=== PATIENT | male | born 1965 | race Caucasian/White ===

== ENCOUNTER 2024-05-23 08:22 | Outpatient (OUT) | payer OTHER, SELFPAY | END 2024-05-23 08:23 | disposition home or self-care (01) | LOC: PST 08:22 | PROVIDERS: Visit Provider Surgery | DX: K62.5 Hemorrhage of anus and rectum (principal) ==

== ENCOUNTER 2024-06-04 06:27 | Day surgery (SDC) | payer OTHER, SELFPAY ==
[2024-06-04 06:30] VITALS: BP 175/90; PULSE 75; TEMP 36.9; O2SAT 97; BMI 50.5
--- OUTSIDE RECORDS SUMMARY | 2024-06-04 06:30 | XMS_ITS | CCD ---
Author Organization [facility] Care Team Providers Care High Wire Artist Name Role Phone Shoaib Bustamante Primary Care Provider YECENIA GRANT Referring Unavailable SHOAIB BUSTAMANTE Primary Care Unavailable BILLIE SELF Attending Unavailable Unavailable Primary Care Provider Unavailtracy hernandez Allergies Allergy Classification Reported Allergen(s) Allergy Type Date of Onset Reaction(s) Facility (7 sources) Acetaminophen / Codeine Drug Allergy 3 Nausea And Vomiting [place] (2 sources) Codeine Drug Allergy 4 Unknown [facility] Medications Current Medications Medication Drug Class(es) Dates Sig (Normalized) Sig (Original) acetaminophen 500 mg oral tablet (8 sources) take 2 tablets by mouth every six hours as needed acetaminophen (Tylenol) 500 MG tablet Take 2 tablets by mouth every 6 (six) hours if needed Active amLODIPine 5 mg oral tablet (4 sources) Dihydropyridine Calcium Channel Rema Start: 08-14-2023 take 1 tablet by mouth once daily amLODIPine (Norvasc) 5 MG tablet Take 1 tablet by mouth Daily 08/14/2023 Active Start: 08-09-2022 take 1 tablet by cory th once daily amLODIPine (NORVASC) 5 MG tablet Take 1 tablet by mouth daily 90 tablet 3 08/09/2022 Active aspirin 81 mg delayed release oral tablet (8 sources) Platelet Aggregation Inhibitor, Nonsteroidal Anti-inflammatory Drug take 1 tablet by mouth once daily aspirin 81 MG EC tablet Take 81 mg by mouth Daily Active take 1 tablet by mouth once jessica y aspirin 81 MG tablet Take 81 mg by mouth daily 0 Active carvedilol 25 mg oral tablet (4 sources) alpha-Adrenergic Rema, beta-Adrenergic Rema Start: 03-26-2024 take 1 tablet by mouth in the morning carvedilol (Coreg) 25 MG tablet Take 25 mg by mouth in the morning and 25 mg before bedtime. 03/26/2024 Active Start: 07-26-2022 take 1 tablet by cory th twice daily carvedilol (COREG) 12.5 MG tablet Take 1 tablet by mouth 2 times daily 60 tablet 5 07/26/2022 Active 24 hr dilTIAZem hydrochloride 120 mg extended release oral capsule (4 sources) Calcium Channel Rema Start: 12-07-2018 take 1 capsule by mouth once daily CARTIA XT 120 MG extended release capsule take 1 capsule by mouth once daily 90 capsule 3 12/07/2018 Active hydroCHLOROthiazide 12.5 mg / lisinopril 20 mg oral tablet (8 sources) Thiazide Diuretic, Angiotensin Converting Enzyme Inhibitor Start: 12-07-2018 End: 11-20-2022 take 2 tablets by mouth once daily lisinopril-hydr oCHLOROthiazide (PRINZIDE;ZESTO RETIC) 20-12.5 MG per tablet Take 2 tablets by mouth daily 180 tablet 3 08/22/2022 11/20/2022 Active ibuprofen 200 mg oral tablet (8 sources) Nonsteroidal Anti-inflammatory Drug take 1 tablet by mouth every six hours as needed for pain ibuprofen 200 MG tablet Take 200 mg by mouth every 6 (six) hours if needed for moderate pain Active tamsulosin hydrochloride 0.4 mg oral capsule (1 source) alpha-Adrenergic Rema Start: 01-08-2019 take 1 capsule by mouth once daily tamsulosin (FLOMAX) 0.4 MG capsule Take 1 capsule by mouth daily Take to facilitate stone passage 30 capsule 0 01/08/2019 Active Completed/Discontinued Medications Medication Drug Class(es) Dates Sig (Normalized) Sig (Original) bisacodyl 5 mg delayed release oral tablet (2 sources) Stimulant Laxative Start: 04-08-2024 End: 04-08-2024 take 1 tablet by mouth once bisacodyl (Dulcolax) 5 MG EC tablet Indications: Blood per rectum Take 1 tablet (5 mg) by mouth 1 time for 1 dose Do not crush, chew, or split. Take as detailed on clinic hand out for colonoscopy prep 4 tablet 04/08/2024 04/08/2024 polyethylene glycol 3350 64261 mg powder for oral solution (2 sources) Osmotic Laxative Start: 04-08-2024 End: 04-08-2024 take 17 g by mouth once polyethylene glycol, PEG, 3350 (Glycolax) 17 GM/SCOOP powder Indications: Colonoscopy Take 238 g by mouth 1 (one) time for 1 dose Take as detailed from clinic hand out for colonoscopy prep 238 g 04/08/2024 04/08/2024 Problems Active Problems Problem Classification Problem Date Documented Da te Episodic/Chronic Calculus of urinary tract (1 source) Kidney stone; Translations: [Renal calculus] Episodic Cardiac dysrhythmias (10 sources) Paroxysmal supraventricular tachycardia; 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] Onset: 5 05-05-2015 Chronic Essential hypertension (7 sources) Hypertensive disorder; Translations: [Essential (primary) hypertension] Onset: 6 06-08-2015 Chronic Gastrointestinal hemorrhage (2 sources) Rectal hemorrhage; Translations: [Hemorrhage of anus and rectum] 04-08-2024 Episodic Other lower respiratory disease (1 source) Dyspnea; Translations: [Shortness of breath] Episodic Other lower respiratory disease (1 source) Shortness of breath; Translations: [Shortness of breath] Onset: Episodic Other nutritional; endocrine; and metabolic disorders (5 sources) Morbid obesity; Translations: [Morbid (severe) obesity due to excess calories] Onset: 5 09-25-2015 Chronic Residual codes; unclassified (5 sources) Obstructive sleep apnea of adult; Translations: [Obstructive sleep apnea (adult) (pediatric)] Onset: 5 05-05-2015 Chronic Residual codes; unclassified (4 sources) Tobacco user; Translations: [Tobacco abuse] Onset: 5 05-05-2015 Chronic Unclassified (4 sources) Medication side effects present; Translations: [Medication side effects present] Onset: 6 09-25-2015 Past or Other Problems Problem Classification Problem Date Documented Da te Episodic/Chronic Administrative/social admission (5 sources) Counseling procedure with explicit context; Translations: [Tobacco abuse counseling] Onset: 05-05-2015 05-05-2015 Episodic E Codes: Adverse effects of medical drugs (1 source) Medication side effects present; Translations: [Adverse effect of unspecified drugs, medicaments and biological substances, initial encounter] Onset: 09-25-2015 09-25-2015 Episodic Genitourinary symptoms and ill-defined conditions (7 sources) Myron hematuria; Translations: [Gross hematuria] Onset: 08-13-2014 08-13-2014 Episodic Residual codes; unclassified (1 source) Tobacco user; Translations: [Tobacco use] Onset: 05-05-2015 05-05-2015 Episodic Results Test Name Value Interpretation Reference Range Facil ity ECHO Complete 2D W Doppler W Coloron 08-30-2022 [facility] Transthoracic Echocardiography Report (TTE) Patient Name WALKER Date of Study 08/30/2022 RADHAMES Luna Date of 1965 Gender Male Age 57 year(s) Race Room Number Height: 71 inch, 180.34 cm Corporate ID [id number] Weight: 352 pounds, 159.7 kg # Patient Acct [id number] BSA: 2.68 m^2 BMI: 49.09 # kg/m^2 MR # [id number] Lead Refinery Supervisor Allie Srivastava Interpreting Physician Ed Garcia Fellow Referring Nurse Practitioner Interpreting Referring Physician MARILYNN Abel Fellow Type of Study TTE procedure:2D Echocardiogram, M-Mode, Doppler, Color Doppler. Procedure Date Date: 08/30/2022 Start: 09:56 AM Study Location: [facility] Indications:Dyspnea/SO B. History / Tech. Comments: SOB, HTN PMHX: HTN Patient Status: Outpatient Height: 71 inches Weight: 352 pounds BSA: 2.68 m^2 BMI: 49.09 kg/m^2 BP: 168/90 mmHg CONCLUSIONS Summary Global left ventricular systolic function appears preserved with an estimated ejection fraction of >65%. The left ventricular cavity size is within normal limits and the left ventricular wall thickness is moderately increased. No definite specific wall motion abnormalities were identified. The left atrium is moderately dilated (34-39) with a left atrial volume index of 34 ml/m2. No significant valvular abnormalities. The aortic root is mildly dilated when corrected for body surface area. Mild diastolic dysfunction. Signature FINDINGS Left Atrium The left atrium is moderately dilated (34-39) with a left atrial volume index of 34 ml/m2. Left Ventricle Global left ventricular systolic function appears preserved with an estimated ejection fraction of >65%. The left ventricular cavity size is within normal limits and the left ventricular wall thickness is moderately increased. No definite specific wall motion abnormalities were identified. Right Atrium Right atrium is normal in size. Right Ventricle Normal right ventricular size and function. Mitral Valve Normal mitral valve structure and function. Aortic Valve Normal aortic valve structure and function without stenosis or regurgitation. Tricuspid Valve Normal tricuspid valve structure with trivial tricuspid regurgitation. Pulmonic Valve The pulmonic valve is normal in structure. Pericardial Effusion An anterior echo free space is seen suggestive of a small effusion or fat pad. Miscellaneous The aortic root is mildly dilated when corrected for body surface area. Mild diastolic dysfunction. M-mode / 2D Measurements & Calculations: LVIDd:5.99 cm(3.7 - 5.6 cm) Diastolic Volume:116.61 ml LVIDs:3.99 cm(2.2 - 4.0 cm) Systolic Volume:37.37 ml IVSd:1.41 cm(0.6 - 1.1 cm) Aortic Root:4.06 cm(2.0 - 3.7 cm) LVPWd:1.45 cm(0.6 - 1.1 cm) LA Dimension: 4.76 cm(1.9 - 4.0 cm) Fractional Shortenin.39 % LA volume/Index: 92.1 ml /34m^2 Calculated LVEF (%): 67.95 % AV Cusp Separation: 1.96 cm Mitral: Aortic Valve Area (P1/2-Time): 2.96 cm^2 Peak Velocity: 1.61 m/s Peak E-Wave: 0.81 m/s Mean Velocity: 1.15 m/s Peak A-Wave: 0.68 m/s Peak Gradient: 10.41 mmHg E/A Ratio: 1.19 Mean Gradient: 5.8 mmHg Peak Gradient: 2.6 mmHg Acceleration Time: 77.35 msec P1/2t: 74.24 msec AV VTI: 31.7 cm Tricuspid: Pulmonic: Estimated RVSP: 9.36 mmHg Peak TR Velocity: 1.26 m/s Peak TR Gradient: 6.442554 mmHg Estimated RA Pressure: 3 mmHg Estimated PASP: 9.36 mmHg Diastology / Tissue Doppler Lateral Wall E' velocity:0.12 m/s Lateral Wall E/E':7.23 [facility] MHT [facility] Ed Garcia MD - 08/30/2022 [facility] Transthoracic Echocardiography Report (TTE) Patient Name WALKER Date of Study 08/30/2022 RADHAMES Luna Date of 1965 Gender Male Age 57 year(s) Race Room Number Height: 71 inch, 180.34 cm Corporate ID [id number] Weight: 352 pounds, 159.7 kg # Patient Acct [id number] BSA: 2.68 m^2 BMI: 49.09 # kg/m^2 MR # [id number] Lead Refinery Supervisor Allie Srivastava Interpreting Physician Ed Garcia Fellow Referring Nurse Practitioner Interpreting Referring Physician MARILYNN Abel Fellow Type of Study TTE procedure:2D Echocardiogram, M-Mode, Doppler, Color Doppler. Procedure Date Date: 08/30/2022 Start: 09:56 AM Study Location: [facility] Indications:Dyspnea/SO B. History / Tech. Comments: SOB, HTN PMHX: HTN Patient Status: Outpatient Height: 71 inches Weight: 352 pounds BSA: 2.68 m^2 BMI: 49.09 kg/m^2 BP: 168/90 mmHg CONCLUSIONS Summary Global left ventricular systolic function appears preserved with an estimated ejection fraction of >65%. The left ventricular cavity size is within normal limits and the left ventricular wall thickness is moderately increased. No definite specific wall motion abnormalities were identified. The left atrium is moderately dilated (34-39) with a left atrial volume index of 34 ml/m2. No significant valvular abnormalities. The aortic root is mildly dilated when corrected for body surface area. Mild diastolic dysfunction. Signature --------- - --------- - --------- - --------- - FINDINGS Left Atrium The left atrium is moderately dilated (34-39) with a left atrial volume index of 34 ml/m2. Left Ventricle Global left ventricular systolic function appears preserved with an estimated ejection fraction of >65%. The left ventricular cavity size is within normal limits and the left ventricular wall thickness is moderately increased. No definite specific wall motion abnormalities were identified. Right Atrium Right atrium is normal in size. Right Ventricle Normal right ventricular size and function. Mitral Valve Normal mitral valve structure and function. Aortic Valve Normal aortic valve structure and function without stenosis or regurgitation. Tricuspid Valve Normal tricuspid valve structure with trivial tricuspid regurgitation. Pulmonic Valve The pulmonic valve is normal in structure. Pericardial Effusion An anterior echo free space is seen suggestive of a small effusion or fat pad. Miscellaneous The aortic root is mildly dilated when corrected for body surface area. Mild diastolic dysfunction. M-mode / 2D Measurements & Calculations: LVIDd:5.99 cm(3.7 - 5.6 cm) Diastolic Volume:116.61 ml LVIDs:3.99 cm(2.2 - 4.0 cm) Systolic Volume:37.37 ml IVSd:1.41 cm(0.6 - 1.1 cm) Aortic Root:4.06 cm(2.0 - 3.7 cm) LVPWd:1.45 cm(0.6 - 1.1 cm) LA Dimension: 4.76 cm(1.9 - 4.0 cm) Fractional Shortenin.39 % LA volume/Index: 92.1 ml /34m^2 Calculated LVEF (%): 67.95 % AV Cusp Separation: 1.96 cm Mitral: Aortic Valve Area (P1/2-Time): 2.96 cm^2 Peak Velocity: 1.61 m/s Peak E-Wave: 0.81 m/s Mean Velocity: 1.15 m/s Peak A-Wave: 0.68 m/s Peak Gradient: 10.41 mmHg E/A Ratio: 1.19 Mean Gradient: 5.8 mmHg Peak Gradient: 2.6 mmHg Acceleration Time: 77.35 msec P1/2t: 74.24 msec AV VTI: 31.7 cm Tricuspid: Pulmonic: Estimated RVSP: 9.36 mmHg Peak TR Velocity: 1.26 m/s Peak TR Gradient: 6.098925 mmHg Estimated RA Pressure: 3 mmHg Estimated PASP: 9.36 mmHg Diastology / Tissue Doppler Lateral Wall E' velocity:0.12 m/s Lateral Wall E/E':7.23 [facility] [employer] Work Phone: ECHO Complete 2D W Doppler W ColorOrdered By: Ed Garcia on 08-30-2022 [facility] [employer] Work Phone: Urinalysis with Microscopico n 01-31-2020 Amorphous, UA NOT REPORTED None [facility], [place] Bacteria, UA NOT REPORTED None [place] Bilirubin Urine Negative NEGATIVE [place], [place] Casts UA NOT REPORTED /LPF [place] Color, UA YELLOW YELLOW [place] Crystals, UA NOT REPORTED None /HPF [place] Epithelial Cells UA 0 TO 2 [place] Glucose, Ur Negative NEGATIVE [place] Interpretation and review of laboratory results Abnormal [place] Ketones Ql (U) Negative NEGATIVE [place] Leukocyte esterase Test strip Ql (U) Negative NEGATIVE [place] Mucus, UA 1+ Abnormal None [place] Nitrite, Urine Negative NEGATIVE [place] Other Observations UA NOT REPORTED NOT REQ. [place] pH, UA 7.0 [place] Protein (U) [Mass/Vol] Negative NEGATIVE [place] RBC (U) [#/Vol] 0 TO 2 [facility], [place] Renal Epithelial, UA NOT REPORTED 0 /HPF [place], [place] Specific [place], UA 1.020 [place], [place] Trichomonas, UA NOT REPORTED None [facility] [place], [place] Turbidity UA CLEAR CLEAR [place] Urinalysis Comments NOT REPORTED [place], [place] Urine Hgb Negative NEGATIVE [place] Urobilinogen, Urine Normal Normal [place] WBC, UA 0 TO 2 [place] Yeast, UA NOT REPORTED None [place] XR ABDOMEN (KUB) (SINGLE AP VIEW)on 01-31-2020 No definite urinary tract calculus [place] EXAMINATION: ONE SUPINE XRAY VIEW(S) OF THE ABDOMEN 01/31/2020 9:26 am COMPARISON: CT urogram January 08, 2019 no definite urinary tract calculus. HISTORY: ORDERING SYSTEM PROVIDED HISTORY: Renal calculus FINDINGS: Overlying bowel gas and stool compromises the sensitivity to detect calculi. No definite urinary tract calculus. Nonobstructive bowel gas pattern. No mass effect. Osseous structures are grossly intact. The lung bases are clear. [place], [place] Leoncio, Mhpn Incoming Radiant Results From [facility] [employer] - 01/31/2020 9:37 AM EDT EXAMINATION: ONE SUPINE XRAY VIEW(S) OF THE ABDOMEN 01/31/2020 9:26 am COMPARISON: CT urogram January 08, 2019 no definite urinary tract calculus. HISTORY: ORDERING SYSTEM PROVIDED HISTORY: Renal calculus FINDINGS: Overlying bowel gas and stool compromises the sensitivity to detect calculi. No definite urinary tract calculus. Nonobstructive bowel gas pattern. No mass effect. Osseous structures are grossly intact. The lung bases are clear. IMPRESSION: No definite urinary tract calculus [place] Urinalysis with Microscopico n 01-08-2019 Amorphous, UA NOT REPORTED None [place], [place] Bacteria, UA TRACE Abnormal None [place] Bilirubin Urine Negative NEGATIVE [place] Casts UA NOT REPORTED /LPF [place] Color, UA YELLOW YELLOW [place] Crystals UA NOT REPORTED None /HPF [place] Epithelial Cells UA None [place] Glucose, Ur Negative NEGATIVE [place] Interpretation and review of laboratory results Abnormal [place] Ketones Ql (U) Negative NEGATIVE [place] Leukocyte esterase Test strip Ql (U) Negative NEGATIVE [place] Mucus, UA NOT REPORTED None [place] Nitrite, Urine Negative NEGATIVE [place] Other Observations UA NOT REPORTED NOT REQ. [facility] [place] pH, UA 6.0 [facility], [place] Protein (U) [Mass/Vol] Negative NEGATIVE [facility], [place] RBC (U) [#/Vol] 2 TO 5 [facility], [place] Renal Epithelial, Urine NOT REPORTED 0 /HPF [facility], [place] Specific [place], UA 1.015 [facility], [place] Trichomonas, UA NOT REPORTED None [facility] [place], [place] Turbidity UA CLEAR CLEAR [facility], [place] Urinalysis Comments NOT REPORTED [facility] [place] Urine Hgb TRACE Abnormal NEGATIVE [facility], [place] Urobilinogen, Urine Normal Normal [facility], [place] WBC, UA 0 TO 2 [facility], [place] Yeast, UA NOT REPORTED None [facility], [place] - [facility], [place] Vital Signs Date Time Vital Sign Value Performing Clinician Marilyn corrigan 04-08-2024 10:03-0500 Body height 181.6 cm [employer]ie[employer]Nitro Phone: [facility] [employer] 04-08-2024 10:03-0500 Body mass index (BMI) [Ratio] 47.58 kg/m2 [employer] Phone: [facility] [employer] 04-08-2024 10:03-0500 Body weight 156.94 kg [employer] Phone: [facility] [employer] 04-08-2024 10:03-0500 Diastolic blood pressure 82 mm[Hg] docplanner Phone: [facility] [employer] 04-08-2024 10:03-0500 Heart rate 66 /min [employer] Phone: [facility] [employer] 04-08-2024 10:03-0500 Respiratory rate 16 /min [employer] Phone: [facility] [employer] 04-08-2024 10:03-0500 SaO2% (BldA) [Mass fraction] 96 % [employer] Phone: [facility] [employer] 04-08-2024 10:03-0500 Systolic blood pressure 138 mm[Hg] Billie Self DO Work Phone: [facility] Encounters Encounter Date Encounter Type Care Provider Facility Start: 04-08-2024 End: 04-08-2024 Bamboo flowsheet Billie Self DO Work Phone: [facility] Start: 04-08-2024 End: 04-08-2024 Bamboo flowsheet Billie Self DO Work Phone: [facility] Start: 04-08-2024 End: 04-08-2024 ambulatory BILLIE SELF Not Available Start: 04-08-2024 End: 04-08-2024 Office outpatient new 30 minutes Billie Self DO Work Phone: [facility] Comment on above: Blood per rectum (Pr imary Dx) Start: 08-30-2022 End: 08-31-2022 ambulatory YECENIA GRANT [facility] Start: 08-30-2022 End: 08-30-2022 Subsequent hospital visit by physician [facility] Echo Room [facility] Echocardiography Comment on above: SOB (shortness of br eat); Uncontrolled hypertension Start: 01-31-2020 End: 01-31-2020 Subsequent hospital visit by physician Shoaib BECKFORD Laboratory Comment on above: Gross hematuria Start: 01-31-2020 End: 02-02-2020 Subsequent hospital visit by physician Horacio Xr Dr Room 4 [facility] Radiology Comment on above: Renal calculus Start: 01-08-2019 End: 01-08-2019 Subsequent hospital visit by physician Shoaib HUERTAS Laboratory Comment on above: Gross hematuria Procedures Date Procedure Procedure Detail Performing Clinician Start: 08-30-2022 Echo tthrc r-t 2d w/wom-mode compl spec&colr d Yecenia Grant PA-C Work Phone: Start: 01-31-2020 Urnls dip stick/tabl et reagent auto microscopy Dianne Pruett Work Phone: Start: 01-31-2020 Radiologic exam abdo men 1 view Angelo Hinton Work Phone: Start: 01-08-2019 Urnls dip stick/tabl et reagent auto microscopy Dianne Pruett Work Phone: Plan of Treatment Date Care Activity Detail Author Start: 12-20-2022 Influenza vaccination Flu vacc ine (Season Ended) MARSHA VALIENTE [facility] Start: 09-06-2022 End: 09-06-2022 Patient encounter procedure 09/06/2022 Office Visit Cardiology Yecenia Grant PA-C [address] [place] [address] [facility] CARDIOLOGY [facility] Start: 01-29-2021 End: 01-29-2021 Office Visit 01/29/2021 Office Visit Urology Angelo Hinton MD [address], [address] [place] [address] [facility] UROLOGY [facility] Start: 05-20-2020 Lipid panel MARSHA Hughes [facility] Start: 05-20-2020 Lipid screen Lipid screen [place] Start: 01-21-2020 Influenza vaccination Flu vaccine (# 1) [place] Start: 01-30-2019 End: 01-30-2019 Procedure visit 01/30/2019 Procedure visit Urology Angelo Hinton MD [address] [place] [id number] [facility] Start: 01-20-2019 Influenza vaccination Flu vaccine (# 1) [place] Start: 01-16-2019 End: 01-16-2019 Appointment 01/16/2019 Appointment Radiology [facility] CT Scan Start: 05-20-2016 Creatinine measurement Creatinine mo [place]itoring [place] Start: 05-20-2016 Creatinine monitoring Creatinine mon [place]oring [place] Start: 05-20-2016 Potassium monitoring Potassium monit [place]ing [place] Start: 2016 Colon cancer screen colonoscopy Colon cancer screen colonoscopy [place] Start: 2016 Screening for malign ant neoplasm of colon Colon cancer screen colonoscopy [place] Start: 2016 Shingles Vaccine (1 of 2) Shingles Vaccine (1 of 2) [place] Start: 12-13-2012 DTaP/Tdap/Td vaccine (1 - Tdap) DTaP/Tdap/Td vaccine (1 - Tdap) [facility] Start: 2011 Screening for malign ant neoplasm of colon [facility] Start: 2006 Diabetes screen Diabetes screen [place], [place] Start: 2001 Diabetes screen Diabetes screen [facility] Start: 1985 DTaP/Tdap/Td vaccine (1 - Tdap) DTaP/Tdap/Td vaccine (1 - Tdap) [place] Start: 1984 Hepatitis C screening Hepatitis C sc reen [facility] Start: 1981 HIV screen HIV screen [place], [place] Start: 1981 HIV screening HIV screen [facility] Start: 1978 Depression Screen Depression Screen [facility] Start: 1972 Pneumococcal 0-64 ye ars Vaccine (1 - PCV) Pneumococcal 0-64 years Vaccine (1 - PCV) [facility] Start: 1972 Pneumococcal 0-64 ye ars Vaccine (1 of 1 - PPSV23) Pneumococcal 0-64 years Vaccine (1 of 1 - PPSV23) [place] Start: 1966 COVID-19 Vaccine (#1) COVID-19 Vacci ne (#1) [facility] Start: 1965 Screening for malign ant neoplasm of colon [facility] Healthcare End: 01-31-2020 Culture, Urine Culture, Urine Microbiology Routine Gross hematuria 1 Occurrences starting 01/31/2020 until 01/31/2020 [place] Comment on above: 1 Occurrences starti ng 01/31/2020 until 01/31/2020 Culture, Urine Culture, Urine Microbiology Routine Gross hematuria 01/31/2020 12:38 PM EDT [place] End: 01-08-2019 Urine culture clean catch Urine culture clean catch Microbiology Routine Gross hematuria 1 Occurrences starting 01/08/2019 until 01/08/2019 [place] Comment on above: 1 Occurrences starti ng 01/08/2019 until 01/08/2019 Urine culture clean catch Urine culture clean catch Microbiology Routine Gross hematuria 01/08/2019 3:15 PM [facility]T [facility] Immunization Date Immunization Notes Care Provider Tracy wick 12-12-2012 Td, unspecified formulation Shoaib Bustamante [employer] [facility] Payers Date Payer Category Payer Managed Care HMO (unspecified) [employer] [id number] 2017 Private Health Insurance [id number] 2015 Private Health Insurance [employer] xxxxxxxxxx 2015-Present [phone] [facility] [id number] [place] [address] xxxxxxxxxx [id number] 1965 Unknown [id number] 1965 Unknown [id number] Social History Date Type Detail Facility Start: 01-31-2020 End: 07-26-2022 Tobacco smoking status NHIS Current every day smoker [facility] [employer] [facility] [employer] Start: 01-31-2020 End: 07-26-2022 Cigarettes smoked [facility] (pack [facility]: 01-31-2020 End: 07-26-2022 Tobacco use and exposure [facility] Start: 01-31-2020 End: 07-26-2022 Alcohol intake Current drink[facility] of [facility] (finding[facility] Start: 01-08-2019 End: 07-26-2022 Tobacco Comment [facility]ape pen [facility] Start: 08-01-2014 Alcohol Comment occasional/social [facility] Start: 1965 Sex Assigned At Not on file [facility] Start: 01-08-2019 Alcohol intake Yes [place], [place] History of tobacco use Cigarette Smoker B ON [employer] [facility] [employer] [facility] Work Phone: Tobacco smoking stat [facility] Tobacco smoking consumption unknown [facility] History of Present illness Narrative 04-08-2024 Billie Self, - 04/08/2024 9:45 AM EST Note Date & Type Note Facility 04-08-2024 History of Presen t illness Narrative General Surgery H&P Radhames Jeffers 1965 Radhames Jeffers is a 58 y.o. male presents today for a colonoscopy consult. Pt denies having a colonoscopy before. Pt denies abdominal pain. Pt admits rectal bleeding from time to time, clots usually that self resolve. Denies hemorrhoids that he knows of or any bulges. Pt denies changes in bowel movements. Pt states that his father did have colon cancer around the age of 74. Denies hx of unplanned weight loss. Denies fevers, chills, or sweats. Denies nausea or vomiting. SUBJECTIVE: MEDICATIONS: ALLERGIES Current Outpatient Medications Medication Instructions acetaminophen (Tylenol) 500 MG tablet 2 tablets, Every 6 hours PRN amLODIPine (Norvasc) 5 MG tablet 1 tablet, Daily aspirin 81 mg, Daily bisacodyl (DULCOLAX) 5 mg, Oral, Once, Do not crush, chew, or split. Take as detailed on clinic hand out for colonoscopy prep carvedilol (COREG) 25 mg, 2 times daily ibuprofen 200 mg, Every 6 hours PRN lisinopril-hydroCHLOROthiazide 20-12.5 MG tablet 2 tablets, Daily polyethylene glycol (PEG) 3350 (GLYCOLAX) 238 g, Oral, Once, Take as detailed from clinic hand out for colonoscopy prep Allergies Allergen Reactions Codeine Unknown Acetaminophen-Codeine Nausea And Vomiting PAST MEDICAL HISTORY: SOCIAL HISTORY SURGICAL HISTORY: History reviewed. No pertinent past medical history. History reviewed. No pertinent surgical history. No family history on file. Allergies Allergen Reactions Codeine Unknown Acetaminophen-Codeine Nausea And Vomiting History reviewed. No pertinent surgical history. Tobacco Use: Medium Risk (04/02/2024) Received from [facility] Patient History Smoking Tobacco Use: Former Smokeless Tobacco Use: Former Passive Exposure: Not on file Alcohol Use: Not on file Depression: Not at risk (04/02/2024) Received from [facility] PHQ-2 PHQ-9 Total Score: 0 Physical Activity: Unknown (04/02/2024) Received from [facility] Exercise Vital Sign Days of Exercise per Week: 0 days Minutes of Exercise per Session: Not on file REVIEW OF SYMPTOMS: Review of Systems All other systems reviewed and are negative. 10 systems were reviewed. Positives noted above. Remainder are negative per CMS guidelines. OBJECTIVE: Visit Vitals BP 138/82 Pulse 66 Resp 16 Ht 5' 11.5 Wt 346 lb SpO2 96% BMI 47.58 kg/m BSA 2.81 m Physical Exam Vitals reviewed. General: AAOx3, NAD Head: atraumatic normocephalic Neck: trachea midline. No masses or lymphadenopathy Heart: Regular rate and rhythm Lungs: equal chest rise and fall, non labored breathing Abdomen: soft, nontender, and non distended Ext: motor 5/5 all extremities with no gross deformities Psych: alert and oriented, behavior appropriate ASSESSMENT AND PLAN: Assessment/Plan Diagnoses and all orders for this visit: Blood per rectum - bisacodyl (Dulcolax) 5 MG EC tablet; Take 1 tablet (5 mg) by mouth 1 time for 1 dose Do not crush, chew, or split. Take as detailed on clinic hand out for colonoscopy prep - polyethylene glycol, PEG, 3350 (Glycolax) 17 GM/SCOOP powder; Take 238 g by mouth 1 (one) time for 1 dose Take as detailed from clinic hand out for colonoscopy prep Plan: Patient is increased risk for colon cancer. Colonoscopy can be scheduled electively. Patient informed of the risks of procedure which include but not limited to bleeding, perforation, and risks of anesthesia. Patient understood risks and signed informed consent for the procedure under monitored anesthesia care. Handout for bowel prep provided in clinic. Patient was informed of the need for a ride home from the hospital and the need for someone to be with them for the following 24 hrs post procedure. Pt knows he needs to hold his ASA 81mg. Thank you, Kamryn Self DO documented in this encounter [facility] Evaluation note Note Date & Type Note Facility Evaluation note Diagnosis SOB (shortness of breath) Shortness of breath Uncontrolled hypertension Unspecified essential hypertension documented in this encounter [facility] Phone: Evaluation note Note Date & Type Note Facility Evaluation note Diagnosis Blood per rectum- Primary Hemorrhage of rectum and anus documented in this encounter [facility] Assessments Diagnosis Gross hematuria Diagnosis Renal calculus Calculus of kidney Diagnosis Gross hematuria Advance Directives Documents on File Type Date Recorded 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 ACP-Advance Directive ACP-Power of Health Care Recruiter Latest Code Status on File Code Status Date Activated Date Inactivated Comments Full Code 06/23/2015 4:35 PM 06/23/2015 11:47 PM Full Code 06/23/2015 1:18 PM 06/23/2015 4:35 PM Documents on File Type Date Recorded 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 Advance Directives and Living Will Power of Health Care Recruiter Latest Code Status on File Code Status Date Activated Date Inactivated Comments Full Code 06/23/2015 4:35 PM 06/23/2015 11:47 PM Code Status History Code Status Date Activated Date Inactivated Comments Full Code 06/23/2015 1:18 PM 06/23/2015 4:35 PM Reason for Referral Specialty Diagnoses / Procedures Referred By Contac t Referred To Contact Cardiology Diagnoses SOB (shortness of breath) Uncontrolled hypertension R06.02 (ICD-10-CM) - SOB (shortness of breath) Procedures ECHO Complete 2D W Doppler W Color KS ECHO TTHRC R-T 2D W/WOM-MODE COMPL SPEC&COLR D 59362 - KS ECHO TTHRC R-T 2D W/WOM-MODE COMPL SPEC&COLR D Yecenia Grant PA-C [address] [place] [address] Referral ID Status Reason Start Date Expiration Date Visits Re quested Visits Authorized [id number] Closed 07/26/2022 07/26/2023 1 1 Summary Purpose Family History No Family History Records FoundNo Family History Records Found Additional Source Comments Reason for Visit (unrecogniz ed section and content) Specialty Diagnoses / Procedures Referred By Contac t Referred To Contact Cardiology Diagnoses SOB (shortness of breath) Uncontrolled hypertension R06.02 (ICD-10-CM) - SOB (shortness of breath) Procedures ECHO Complete 2D W Doppler W Color KS ECHO TTHRC R-T 2D W/WOM-MODE COMPL SPEC&COLR D 25919 - KS ECHO TTHRC R-T 2D W/WOM-MODE COMPL SPEC&COLR D Yecenia Grant PA-C [address] [place] [address] Referral ID Status Reason Start Date Expiration Date Visits Re quested Visits Authorized [id number] Closed 07/26/2022 07/26/2023 1 1 Reason Comments Colonoscopy Pt presents today fo r a colonoscopy consult. Pt denies/admits to: denies having a colonoscopy before. Last colonoscopy was never. Pt denies abdominal pain. Pt admits rectal bleeding. Pt denies changes in bowel movements. Pt admits to a family history of colon cancer that they know of. Pt states that his father did have colon cancer. 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 This clinical summary was aggregated from multiple sources. Caution should be exercised in using it in the provision of clinical care. This summary normalizes information from multiple sources, and as a consequence, information in this document may materially change the coding, format and clinical context of patient data. In addition, data may be omitted in some cases. CLINICAL DECISIONS SHOULD BE BASED ON THE PRIMARY CLINICAL RECORDS. [employer] [facility]. provides no warranty or guarantee of the accuracy or completeness of information in this document.
[2024-06-04] MEDS: 0.9 % SODIUM CHLORIDE 500 ML 50 ML IV (06:56)
--- NOTE | 2024-06-04 07:15 | W.PM.PROCNOT ---
Date of procedure: 06/04/24 Pre-op diagnosis: screening colonoscopy Post-op diagnosis: same as pre-op Procedure: Previous colonoscopy: never procedure: screening colonoscopy The patient was given IV conscious sedation.? The patient's SPO2 remained above 90% throughout the procedure. The colonoscope was inserted per rectum and advanced under direct vision to the cecum without difficulty.? The prep was good.? Findings: Terminal ileum os: normal Cecum/Ascending colon: normal Transverse colon: normal Descending/Sigmoid colon: normal Rectum/Anus: examined in normal and retroflexed positions and was normal aside for mild internal hemorrhoids Withdrawal Time was (minutes): 8 The colon was decompressed and the scope was removed.? The patient tolerated the procedure well. Recommendations/Plan: 1.? Lifestyle and dietary modifications as discussed 2.? F/U in 10 years or sooner if having blood per rectum 3.? Discussed with the family Anesthesia: MAC Surgeon: Eamon Self Estimated blood loss (mL): 0 Pathology: none sent Condition: stable Disposition: PACU
[2024-06-04 07:39] VITALS: BP 121/66; PULSE 71; TEMP 36.3; O2SAT 94
[2024-06-04 07:54] VITALS: BP 133/69; PULSE 68; O2SAT 95
[2024-06-04 08:09] VITALS: BP 137/73; PULSE 65; O2SAT 96
== END 2024-06-04 08:09 | disposition home or self-care (01) ==
PROVIDERS: Visit Provider Surgery
PROC: (CPT 812; principal; 2024-06-04 07:30)
DX: Z12.11 Encounter for screening for malignant neoplasm of colon (principal); K62.5 Hemorrhage of anus and rectum; K64.8 Other hemorrhoids; E66.01 Morbid (severe) obesity due to excess calories; Z68.43 Body mass index [BMI] 50.0-59.9, adult; I10 Essential (primary) hypertension; D68.00 Von Willebrand disease, unspecified
CPT/HCPCS: 45378; J2704

== ENCOUNTER 2024-09-19 22:00 | Emergency (ER) | payer OTHER, SELFPAY ==
[2024-09-19 22:05] VITALS: BP 165/88; PULSE 76; TEMP 36.5; O2SAT 95; BMI 50.2
--- NOTE | 2024-09-19 22:53 | ECG_ITS ---
[facility] Test Date: 2024-09-19 Pat Name: JAZMYN DANIELLE Department: Room: - Gender: Male Clinical Genetics Laboratory Chief: : 1965 Requested By: [id number] Order Number: [id number] Reading MD: EMERSON HANIES M.D. Measurements Intervals [place] Rate: 64 P: 55 IN: 216 QRS: -32 QRSD: 114 T: 59 QT: 398 QTc: 408 Interpretive Statements Sinus rhythm with sinus arrhythmia 2231 First degree AV block Incomplete right bundle branch block 7200 Abnormal left axis deviation 9150 abnormal ECG No previous ECG available for comparison Electronically Signed On 09-19-2024 23:30:50 EDT by EMERSON HAINES M.D.
[2024-09-19] MEDS: FUROSEMIDE 40 MG/4 ML VIAL IVP (23:19)
[2024-09-19 23:24] LABS: Basophils Absolute Auto 0.1 10^3/uL (0.0-0.1); Basophils Percent Auto 0.7 % (0.2-2.0); Eosinophils Absolute Auto 0.4 10^3/uL (0.0-0.7); Hematocrit 41.6 % (42.0-54.0); Hemoglobin 14.1 g/dL (14.0-18.0); Immature Granulocytes Abs Auto 0.08 10^3/uL (0.00-0.03); Immature Granulocytes Pct Auto 0.7 % (0.0-0.5); Lymphocytes Absolute Auto 2.3 10^3/uL (1.2-3.8); Lymphocytes Percent Auto 18.9 % (20.5-60.0); Mean Corpuscular HGB Conc 33.9 g/dL (29.9-35.2); Mean Corpuscular Hemoglobin 29.4 pg (25.9-34.0); Mean Corpuscular Volume 86.8 fL (80.0-94.0); Mean Platelet Volume 10.2 fL (9.5-13.5); Monocytes Absolute Auto 1.1 10^3/uL (0.3-0.8); Monocytes Percent Auto 8.8 % (1.7-12.0); Neutrophils Absolute Auto 8.3 10^3/uL (1.4-6.5); Neutrophils Percent Auto 67.9 % (43.0-75.0); Platelet Count 312 10^3/uL (150-450); Red Blood Count 4.79 10^6/uL (4.70-6.10); Red Cell Distribution Width 13.4 % (11.0-15.0); White Blood Count 12.2 10^3/uL (4.0-11.0)
[2024-09-19 23:48] LABS: Alanine Aminotransferase 34 U/L (16-63); Albumin Globulin Ratio 0.9; Albumin Level 3.3 g/dL (3.4-5.0); Alkaline Phosphatase 69 U/L (46-116); Aspartate Amino Transferase 18 U/L (15-37); BUN Creatinine Ratio 11.5; Bilirubin Total 0.4 mg/dL (0.2-1.0); Carbon Dioxide 29.6 mmol/L (21.0-32.0); Chloride 102 mmol/L (98-107); Estimated GFR (African America >60 (>=60 mL/min/1.73m^2); Estimated GFR (Non-African Ame >60 (>=60 mL/min/1.73m^2); Globulin 3.7 g/dL; Glucose 98 mg/dL (74-106); Potassium 3.6 mmol/L (3.5-5.1); Sodium 140 mmol/L (136-145)
--- NOTE | 2024-09-22 02:25 | ED.GENADUL1 ---
HPI HPI - General Adult General Chief complaint: Extremity Problem, Nontraumatic Stated complaint: RETAINING WATER EXTREMETIES Time Seen by Provider: 09/19/24 22:17 Source: patient Mode of arrival: walk-in Limitations: no limitations History of Present Illness HPI narrative: The patient is an extremely pleasant 59-year-old gentleman who presents to the emergency department complaining of bilateral lower extremity pain. Patient states that the symptoms have been gradually getting worse over the last 2 weeks. He had medication changed recently 2 weeks ago. Patient was on lisinopril/hydrochlorothiazide and was switched to carvedilol and amlodipine. Patient states that since then he feels like his lower extremities have gotten more swollen. After he works all day they are very tight. He states today they are burning and feeling like his legs are gone his blood open. There is no redness. He did not have any trauma to them. He has no known history of congestive heart failure. He is denying any chest pain or shortness of breath. Pain in his lower extremities and moderate in severity. Standing up and walking make it worse. Nothing makes it better. Patient does not wear compression stockings when he works. Related Data Home Medications ?Medication ?Instructions ?Recorded ?Confirmed amlodipine 5 mg tablet 10 mg PO DAILY 05/23/24 09/19/24 carvedilol 25 mg tablet 25 mg PO Q12H 05/23/24 09/19/24 valsartan 320 1 tab PO DAILY 09/19/24 09/19/24 mg-hydrochlorothiazide 12.5 mg tablet Previous Rx's ?Medication ?Instructions ?Recorded furosemide 20 mg tablet (Lasix) 20 mg PO DAILY edema of the lower 09/20/24 legs #14 tabs potassium chloride 20 mEq 20 meq PO DAILY #14 tabs 09/20/24 tablet,extended release Allergies Allergy/AdvReac Type Severity Reaction Status Date / Time acetaminophen (From AdvReac Mild Vomiting Verified 09/19/24 22:10 Tylenol-Codeine #3) codeine (From AdvReac Mild Vomiting Verified 09/19/24 22:10 Tylenol-Codeine #3) Review of Systems ROS Narrative 10 Systems were reviewed, and unless noted in the HPI, all other systems are reviewed, unremarkable, or noncontributory. [facility] Medical History (Updated 09/20/24 @ 01:28 by Kajal Monterroso, ) Von Willebrand disease ?D68.00 - Von Willebrand disease, unspecified (ICD-10) Osteoarthritis ?M19.90 - Unspecified osteoarthritis, unspecified site (ICD-10) Sleep apnea ?G47.30 - Sleep apnea, unspecified (ICD-10) Kidney stones ?N20.0 - Calculus of kidney (ICD-10) Seasonal allergies ?J30.2 - Other seasonal allergic rhinitis (ICD-10) Hearing loss ?H91.90 - Unspecified hearing loss, unspecified ear (ICD-10) Rectal bleeding ?K62.5 - Hemorrhage of anus and rectum (ICD-10) Palpitations ?R00.2 - Palpitations (ICD-10) Hypertension ?I10 - Essential (primary) hypertension (ICD-10) Surgical History (Updated 05/23/24 @ 08:48 by Francia Eaton) History of cardiac radiofrequency ablation ?Z98.890 - Other specified postprocedural states (ICD-10) History of arthroscopy of knee ?Z98.890 - Other specified postprocedural states (ICD-10) Family History (Updated 05/23/24 @ 08:32 by Francia Eaton) Grandmother Family history of aneurysm Other Family history of Alzheimer's disease Family history of COPD (chronic obstructive pulmonary disease) Family history of coronary artery disease Family history of emphysema Family history of heart disease Family history of hypertension Family history of myocardial infarction Social History (Updated 05/23/24 @ 08:26 by Francia Eaton) Within the past year, how often did you have a drink containing alcohol: monthly or less Do you use any of these nicotine containing products: vaping products Non-prescribed substance use: denies use 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 Prior to touching the patient, I asked for consent to examine the patient.? General: Alert and oriented, well nourished, mild distress. Eye: PERRL, EOMI, normal conjunctiva. HENT: Normocephalic, normal hearing, moist oral mucosa, no scleral icterus Neck: Supple, non-tender, no carotid bruits, no JVD, no lymphadenopathy. Lungs: Clear to auscultation and percussion, non-labored respiration. Heart: Normal rate, regular rhythm, no murmur, or gallop. The patient has +4 pitting edema to above the knee. Abdomen: Soft, non-tender, non-distended, normal bowel sounds, no masses. Increased BMI Musculoskeletal: Normal range of motion and strength, no tenderness or swelling. Skin: Skin is warm, dry and pink, no rashes or lesions. Neurologic: Awake, alert, and oriented X3, CN II-XII intact. Psychiatric: Cooperative, appropriate mood and affect.? Following the conclusion of the examination, I have washed my hands thoroughly after removing examination gloves. Constitutional Vital Signs, click to edit/add: Last Vital Signs Temp 97.7 F 09/19/24 22:05 Pulse 76 09/19/24 22:05 Resp 18 09/19/24 22:05 BP 165/88 H 09/19/24 22:05 Pulse Ox 95 09/19/24 22:05 O2 Del Method Room Air 09/19/24 22:05 Course Course Hospital Course: Patient is a 59-year-old male who was seen for bilateral lower extremity edema. The gentleman had some blood work drawn. White blood cell count is 12.2 thousand. There is no evidence of obvious infection. Hemoglobin is normal. The patient's comprehensive metabolic panel is unremarkable electrolytes, kidney function is good, liver enzymes are appropriate. Glucose is 98. BNP is 56. Reevaluation(s) Reevaluation #1: Patient had gotten up 5-6 times during his emergency department stay and had used the bathroom. He is starting to feel like his legs do not hurt as bad. Vital Signs Vital signs: Vital Signs Temperature 97.7 F 09/19/24 22:05 Pulse Rate 76 09/19/24 22:05 Respiratory Rate 18 09/19/24 22:05 Blood Pressure 165/88 H 09/19/24 22:05 Pulse Oximetry 95 09/19/24 22:05 Oxygen Delivery Method Room Air 09/19/24 22:05 Temperature 97.7 F 09/19/24 22:05 Pulse Rate 76 09/19/24 22:05 Respiratory Rate 18 09/19/24 22:05 Blood Pressure 165/88 H 09/19/24 22:05 Pulse Oximetry 95 09/19/24 22:05 Oxygen Delivery Method Room Air 09/19/24 22:05 Medical Decision Making MDM Narrative Medical decision making narrative: In assessment of this gentleman there is no evidence that he is having right or left-sided congestive heart failure. He does have some peripheral edema present. The patient does not have any evidence of infection or cellulitis. Think a mild white blood cell count elevation is likely secondary to pain or just demargination. He has no evidence of any fever or other unstable vital signs. Patient has good peripheral pulses and brisk capillary refill therefore I do not believe that he has peripheral arterial disease. At this time I think the symptoms are attributed to poor venous return. I did discuss with the patient wearing compressive stockings and raising his legs when he is not walking around. I did make it very clear to him that I still wanted him to be active and doing things as this will help improve his cardiovascular condition, weight, and keep him from getting a blood clot. Differential Diagnosis Differential Diagnosis: Right-sided congestive heart failure, peripheral edema, cellulitis, PAD Medical Records Medical records reviewed: Yes I reviewed the patient's medical records Lab Data Lab results reviewed: Yes I reviewed the patient's lab results Labs: Lab Results 09/19/24 Range/Units 23:00 WBC 12.2 H (4.0-11.0) 10^3/uL RBC 4.79 (4.70-6.10) 10^6/uL Hgb 14.1 (14.0-18.0) g/dL Hct 41.6 L (42.0-54.0) % MCV 86.8 (80.0-94.0) fL MCH 29.4 (25.9-34.0) pg MCHC 33.9 (29.9-35.2) g/dL RDW 13.4 (11.0-15.0) % Plt Count 312 (150-450) 10^3/uL MPV 10.2 (9.5-13.5) fL Neut % (Auto) 67.9 (43.0-75.0) % Lymph % (Auto) 18.9 L (20.5-60.0) % [place] % (Auto) 8.8 (1.7-12.0) % Eos % (Auto) 3.0 (0.9-7.0) % Baso % (Auto) 0.7 (0.2-2.0) % Neut # (Auto) 8.3 H (1.4-6.5) 10^3/uL Lymph # (Auto) 2.3 (1.2-3.8) 10^3/uL [place] # (Auto) 1.1 H (0.3-0.8) 10^3/uL Eos # (Auto) 0.4 (0.0-0.7) 10^3/uL Baso # (Auto) 0.1 (0.0-0.1) 10^3/uL Abs Immat Gran (auto) 0.08 H (0.00-0.03) 10^3/uL Imm/Tot Granulo (auto) 0.7 H (0.0-0.5) % Sodium 140 (136-145) mmol/L Potassium 3.6 (3.5-5.1) mmol/L Chloride 102 (98-107) mmol/L Carbon Dioxide 29.6 (21.0-32.0) mmol/L Anion Gap 12.0 BUN 11.0 (7.0-18.0) mg/dL Creatinine 0.96 (0.70-1.30) mg/dL Est GFR ( Amer) >60 (>=60 mL/min/1.73m^2) Est GFR (Non-Af Amer) >60 (>=60 mL/min/1.73m^2) BUN/Creatinine Ratio 11.5 Glucose 98 (74-106) mg/dL Calcium 9.0 (8.5-10.1) mg/dL Total Bilirubin 0.4 (0.2-1.0) mg/dL AST 18 (15-37) U/L ALT 34 (16-63) U/L Alkaline Phosphatase 69 (46-116) U/L NT-Pro-B Natriuret Pep 56.0 (<=900.0) pg/mL Total Protein 7.0 (6.4-8.2) g/dL Albumin 3.3 L (3.4-5.0) g/dL Globulin 3.7 g/dL Albumin/Globulin Ratio 0.9 Imaging Data Chest x-ray: Attestation: I personally reviewed and interpreted this imaging study as follows: My impression: No acute cardiopulmonary process. Radiologist's impression: Mild cardiomegaly with mild peripheral edema Discharge Plan Discharge Chief Complaint: Extremity Problem, Nontraumatic Clinical Impression: Lower extremity edema Patient Disposition: Home, Self-Care Time of Disposition Decision: 01:28 Mode of Transportation: Private Vehicle Prescriptions / Home Meds: New furosemide [Lasix] 20 mg tablet 20 mg PO DAILY Qty: 14 0RF potassium chloride 20 mEq tablet extended release 20 meq PO DAILY Qty: 14 0RF No Action carvedilol 25 mg tablet 25 mg PO Q12H amlodipine 5 mg tablet 10 mg PO DAILY valsartan-hydrochlorothiazide 320-12.5 mg tablet 1 tab PO DAILY Print Language: Thai Instructions: Leg Edema (ED) Additional Instructions: Thank you for trusting me with your care today. Please try to take it easy this weekend and keep your feet up. Try to get some tall compressive socks. These will take some of the swelling away. The Lasix will help get your fluids off. Unfortunately the way the medication works as it gets rid of potassium in your body as well. I am prescribing you potassium to take so that you do not get any leg cramps. Try to lay low on the salt. 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 My note will be available for them. Referrals: Rubina Cline [Primary Care Provider] - 1 week Discharge Date/Time: 09/20/24 01:46
== END 2024-09-20 01:46 | disposition home or self-care (01) ==
PROVIDERS: Emergency Provider Emergency Medicine; PCP Nurse Practitioner Family
DX: R60.0 Localized edema (principal); Z79.899 Other long term (current) drug therapy; F17.290 Nicotine dependence, other tobacco product, uncomplicated
CPT/HCPCS: 36415; 71046; 80053; 83880; 85025; 93005; 96374; 99285; J1938